=== PATIENT | female | born 1965 ===

== ENCOUNTER 2018-09-19 10:45 | Inpatient (IN) | payer OTHER ==
[~2018-09-19] VITALS: Ht 165.1 cm; Wt 81.6 kg
[~2018-09-19 10:45] MED LIST: CLONAZEPAM PO; ZOLOFT100 MG PO; [UNRECOGNIZED DRUG - OTHER] PO
[2018-09-22] MEDS ORDERED: TRIAZOLAM0.25 MG PO (10:26)
[2018-09-22] MEDS ORDERED: CLONAZEPAM0.5 MG PO (10:28)
== END 2018-09-23 12:25 | disposition home or self-care (01) | DRG 743 ==
LOC: O/R 10:45 → RECOVERY 09-22 10:45 → OB/GYN 09-22 13:13
PROVIDERS: ADMIT Obstetrics & Gynecology Gynecologic Oncology
PROC: 0UT74ZZ Resection of Bilateral Fallopian Tubes, Percutaneous Endoscopic Approach (ICD-10-PCS; 2018-09-22)
PROC: 0UT24ZZ Resection of Bilateral Ovaries, Percutaneous Endoscopic Approach (ICD-10-PCS; 2018-09-22)
PROC: 0UT94ZZ Resection of Uterus, Percutaneous Endoscopic Approach (ICD-10-PCS; principal; 2018-09-22 12:30)
DX: N93.8 Other specified abnormal uterine and vaginal bleeding (principal); N72 Inflammatory disease of cervix uteri; N83.8 Other noninflammatory disorders of ovary, fallopian tube and broad ligament; N87.1 Moderate cervical dysplasia; D25.2 Subserosal leiomyoma of uterus